=== PATIENT | female | born 1980 | race Two or more races ===

== ENCOUNTER 2024-07-25 09:42 | Emergency (ER) | payer OTHER ==
[~2024-07-25] VITALS: Ht 162.6 cm; Wt 59.0 kg
[2024-07-25] MEDS ORDERED: HYDROCODONE/CHLORPHEN P-STIREX 5 ML ML PO STA (11:07)
[2024-07-25 12:01] LABS: HEMATOCRIT 31.1 % (36.0-45.00); HEMOGLOBIN 10.2 g/dL (12.0-15.00); MEAN CELL VOLUME 84.3 fL (80.00-100.00); MEAN CORPUSCULAR HEMOGLOBIN 27.5 pg (27.00-32.0); MEAN CORPUSCULAR HGB CONC 32.7 g/dl (32.0-36.0); PLATELET COUNT 237 K/uL (150-450); RED BLOOD COUNT 3.69 M/uL (4.00-6.00)
[2024-07-25 12:16] LABS: CALCIUM 9.2 mg/dL (8.5-10.1); CREATININE SERUM 0.7 mg/dL (0.55-1.02); GFR 90.49; POTASSIUM 4.17 mEq/L (3.5-5.1)
[2024-07-25 12:30] LABS: URINE APPEARANCE Clear; URINE BILIRRUBIN Negative (NEGATIVE); URINE BLOOD Negative; URINE COLOR Yellow; URINE GLUCOSE Negative (NEGATIVE); URINE KETONE Negative (NEGATIVE); URINE LEUKOCYTE Negative; URINE NITRATE Negative; URINE PROTEIN Negative (NEGATIVE); URINE UROBILINOGEN 0.2 E.U./dl
[2024-07-25 12:33] LABS: URINE BACTERIA 47.7 uL (0.0-1933); URINE EPITHELIAL CELLS 4.7 uL (0.0-38.8); URINE RBC 9.2 uL (0.0-20.8); URINE WBC 5.8 uL (0.0-23.2)
[2024-07-25 13:02] LABS: URINE CAST 0.14 uL (0.0-1.40)
[2024-07-25] MEDS ORDERED: LACTULOSE 20 G/30 ML BLIST.PACK PO STA (13:23)
[2024-07-25] MEDS ORDERED: MAGNESIUM SULFATE IN WATER 0.04 GM/ML IV.SOLN IV STA (13:24)
[2024-07-25] MEDS ORDERED: LACTULOSE 20 G/30 ML BLIST.PACK ONE (14:34)
[2024-07-25] MEDS ORDERED: MAGNESIUM HYDROXIDE 30 ML BLIST.PACK PO ONE (14:34)
== END 2024-07-25 14:41 | disposition home or self-care (01) ==
LOC: ER 09:43
PROVIDERS: General Practice
DX: M54.50 Low back pain, unspecified (principal); M54.9 Dorsalgia, unspecified